=== PATIENT | male | born 1975 ===

== ENCOUNTER 2016-11-11 13:18 | Emergency (ER) | payer SELFPAY ==
[2016-11-11 13:25] VITALS: BP 130/79; PULSE 104; RESP 18; TEMP 98.2; O2SAT 97
--- NOTE | 2016-11-11 14:06 | C.PDOC ---
History Of Present Illness 41-year-old male, presents to the emergency department with complaints of left leg pain, that is mostly in thigh after running up stairs. Patient states he felt a pull. He did not take any medication for pain, that is worse with movement. Denies nausea/vomiting, numbness/weakness, or any other associated symptoms. No other complaints. Time Seen by Provider: 11/11/16 13:31 Chief Complaint (Nursing): Back Pain History Per: Patient History/Exam Limitations: no limitations Onset/Duration Of Symptoms: Days Current Symptoms Are (Timing): Still Present Quality Of Discomfort: "Pain" Severity: Moderate Past Medical History Reviewed: Historical Data, Nursing Documentation, Vital Signs Vital Signs: Last Vital Signs Temp 98.2 F 11/11/16 13:21 Pulse 104 H 11/11/16 13:21 Resp 18 11/11/16 13:21 BP 130/79 11/11/16 13:21 Pulse Ox 97 11/11/16 16:39 - Medical History PMH: No Chronic Diseases Family History: States: No Known Family Hx - Social History Hx Alcohol Use: Yes Hx Substance Use: No - Immunization History Hx Tetanus Toxoid Vaccination: No Hx Influenza Vaccination: No Hx Pneumococcal Vaccination: No Review Of Systems Constitutional: Negative for: Fever Cardiovascular: Negative for: Chest Pain Respiratory: Negative for: Cough Gastrointestinal: Negative for: Vomiting, Abdominal Pain Genitourinary: Negative for: Incontinence Musculoskeletal: Positive for: Leg Pain (Left). Negative for: Back Pain Neurological: Negative for: Weakness, Numbness, Headache Physical Exam - Physical Exam Appears: Non-toxic, No Acute Distress Skin: Warm, Dry, No Rash Head: Atraumatic, Normacephalic Eye(s): bilateral: Normal Inspection Neck: Normal ROM Respiratory: No Accessory Muscle Use Extremity: Tenderness (Mild, left anterior and lateral thigh), No Pedal Edema, No Calf Tenderness, Capillary Refill (<2 seconds), No Deformity, No Swelling, No Other (no erythema, mass, rash or tactile warmth) Pulses: Left Dorsalis Pedis: Normal Neurological/Psych: Oriented x3, Normal Speech ED Course And Treatment O2 Sat by Pulse Oximetry: 97 Medical Decision Making Medical Decision Making: Impression: 41y/o M, comes in w/ complaints of leg pain. Muscular tenderness on exam. No trauma, thus xray not indicated at this time Plan: * Valium, Motrin * Reassess and Disposition Progress: Patient was given Valium and Toradol for pain. Upon reevaluation, patient reports pain has mostly improved. Patient is ambulatory without signs of discomfort. Recommend analgesics at home and Rx was given. Patient to follow up with PCP or clinic. Disposition Counseled Patient/Family Regarding: Diagnosis, Need For Followup, Rx Given - Disposition Referrals: [facility] [Outside] [facility] [Outside] Disposition: HOME/ ROUTINE Disposition Time: 14:36 Condition: STABLE Additional Instructions: Take Motrin as needed for pain every 6 hours, with food to not upset stomach. Follow up with your primary medical doctor or clinic in 2-5 days for further evaluation. Prescriptions: Cyclobenzaprine [Cyclobenzaprine HCl] 10 mg PO TID #30 tab Ibuprofen [Motrin] 600 mg PO Q8 #30 tab Instructions: Muscle Strain (ED) - POA Present On Arrival: None - Clinical Impression Clinical Impression: Muscle strain of left lower extremity - Scribe Statement The provider has reviewed the documentation as recorded by the Scribe (Buster Lopez) All medical record entries made by the Scribe were at my direction and personally dictated by me. I have reviewed the chart and agree that the record accurately reflects my personal performance of the history, physical exam, medical decision making, and the department course for this patient. I have also personally directed, reviewed, and agree with the discharge instructions and disposition.
== END 2016-11-11 14:44 | disposition home or self-care (01) ==
LOC: C.ER 13:18
DX: S76.912A Strain of unspecified muscles, fascia and tendons at thigh level, left thigh, initial encounter (principal); X50.9XXA Other and unspecified overexertion or strenuous movements or postures, initial encounter; Y92.89 Other specified places as the place of occurrence of the external cause

== ENCOUNTER 2016-11-27 23:56 | Emergency (ER) | payer SELFPAY ==
[2016-11-28 00:07] VITALS: BP 120/85; PULSE 88; RESP 16; TEMP 98.3; O2SAT 98
--- NOTE | 2016-11-28 00:13 | C.PDOC ---
History Of Present Illness A 41 y/o male complains of having a QTIP stuck in his right ear 20 min prior. Denies headache, ear discharge, or ear pain. Time Seen by Provider: 11/28/16 00:08 Chief Complaint (Nursing): ENT Problem History Per: Patient History/Exam Limitations: None Onset/Duration Of Symptoms: Mins Current Symptoms Are (Timing): Still Present Quality (Ear): Foreign Body. denies: Pain W/Touch, Discharge Quality (Mouth/Throat): denies: Drainage Severity: Mild Anticoagulant/Antiplatlet Use?: No Past Medical History Reviewed: Historical Data, Nursing Documentation, Vital Signs Vital Signs: Last Vital Signs Temp 98.3 F 11/28/16 00:05 Pulse 88 11/28/16 00:05 Resp 16 11/28/16 00:05 BP 120/85 11/28/16 00:05 Pulse Ox 98 11/28/16 00:21 - Medical History PMH: No Chronic Diseases Family History: States: Unknown Family Hx - Social History Hx Alcohol Use: Yes Hx Substance Use: No - Immunization History Hx Tetanus Toxoid Vaccination: No Hx Influenza Vaccination: No Hx Pneumococcal Vaccination: No Review Of Systems Except As Marked, All Systems Reviewed And Found Negative. ENT: Positive for: Other (QTIP in right ear). Negative for: Ear Pain, Ear Discharge Neurological: Negative for: Weakness, Numbness Physical Exam - Physical Exam Appears: Non-toxic, No Acute Distress Skin: Warm, Dry Head: Atraumatic, Normacephalic Eye(s): bilateral: Normal Inspection Ear(s): Left: Normal, Right: Other (Cotton object right ear) Nose: Normal Oral Mucosa: Moist Neck: Normal ROM Extremity: Bilateral: Atraumatic Neurological/Psych: Oriented x3, Normal Speech ED Course And Treatment O2 Sat by Pulse Oximetry: 98 (RA) Pulse Ox Interpretation: Normal Medical Decision Making Medical Decision Making: Impression: A 41 y/o M c/o having a QTIP stuck in his right ear 20 min prior. Plans: -Foreign body removal Object removed using alligator forceps. Ear exam shows normal canal, TM intact, no discharte. Pt is in no current distress and denies pain. Pt was discharge home and instructed to visit PMD or clinic if symptoms arise. Disposition - Disposition Disposition: HOME/ ROUTINE Disposition Time: 00:13 Condition: STABLE Additional Instructions: Avoid placing objects in ear Instructions: Ear Foreign Body (ED) - POA Present On Arrival: None - Clinical Impression Clinical Impression: Foreign body in right ear - Scribe Statement The provider has reviewed the documentation as recorded by the Scribe Kiana bedolla All medical record entries made by the Scribe were at my direction and personally dictated by me. I have reviewed the chart and agree that the record accurately reflects my personal performance of the history, physical exam, medical decision making, and the department course for this patient. I have also personally directed, reviewed, and agree with the discharge instructions and disposition.
== END 2016-11-28 00:34 | disposition home or self-care (01) ==
LOC: C.ER 23:56
DX: T16.1XXA Foreign body in right ear, initial encounter (principal); X58.XXXA Exposure to other specified factors, initial encounter